=== PATIENT | male | born 1980 | race African-American/Black ===

== ENCOUNTER 2022-05-16 14:47 | Outpatient (CLI) | payer OTHER, SELFPAY ==
--- NOTE | 2022-05-16 | ECG_ITS ---
Measurements Intervals [place] Rate: 89 P: 77 ID: [id number] QRS: 75 QRSD: 86 T: 59 QT: 340 QTc: 414 Interpretive Statements SINUS RHYTHM NO PREVIOUS ECG AVAILABLE FOR COMPARISON Electronically Signed On 05-16-2022 18:39:38 CDT by Joann Sommer M.D.
== END 2022-05-16 14:48 | disposition home or self-care (01) ==
PROVIDERS: PCP Family Medicine; Visit Provider Nurse Practitioner Adult Health
DX: R00.2 Palpitations (principal)
CPT/HCPCS: 93005

== ENCOUNTER 2022-05-18 11:20 | Inpatient (IN) | payer OTHER, SELFPAY ==
[2022-05-18] VITALS (20 sets, daily range): BP systolic 117–149; BP diastolic 66–90; PULSE 72–93; RESP 10–20; TEMP 36.5–37.2; O2SAT 100; BMI 18.8
--- NOTE | ~2022-05-18 | XR_ITS ---
EXAM: XR abdomen/kub 1V DATE: 05/18/2022 15:19 HISTORY: constipation . COMPARISON: None available. FINDINGS: Clear lung bases. Normal bowel gas pattern. No organomegaly. No abnormal abdominal calcifi cation. Regional bones and soft tissues normal for age. IMPRESSION: No radiographic evidence of obstruction or ileus. Reviewed, dictated and finalized at location K.
[2022-05-18 12:09] LABS: Basophils Absolute Auto 0.1 K/mm3 (0.0-0.1); Basophils Percent Auto 1.7 % (0.2-1.2); Eosinophils Absolute Auto 0.1 K/mm3 (0-0.3); Eosinophils Percent Auto 2.3 % (0-4.4); Immature Granulocyte Absolute 0.02 K/mm3 (0.00-0.031); Immature Granulocyte Percent A 0.4 % (0-0.5); Immature Platelet Fraction Pct 10.6 % (0.9-11.2); Lymphocytes Absolute Auto 1.53 K/mm3 (0.9-3.2); Lymphocytes Percent Auto 28.8 % (18.3-44.2); Mean Corpuscular HGB Conc 26.2 g/dl (32-36); Mean Corpuscular Hemoglobin 19.7 pg (26-34); Mean Corpuscular Volume 75.3 fl (80-100); Mean Platelet Volume 11.5 fl (7.4-10.4); Monocytes Absolute Auto 0.6 K/mm3 (0.1-0.6); Monocytes Percent Auto 11.3 % (2.6-8.5); Neutrophils Percent Auto 55.5 % (45.5-73.1); Platelet Count Result 264 k/mm3 (150-375); Red Blood Count 2.79 M/mm3 (4.6-6.20); Red Cell Distribution Width 17.1 % (11.5-14.5); White Blood Count 5.3 K/mm3 (4.5-10.0)
[2022-05-18 12:25] LABS: Hemoglobin 5.5 g/dL (14.0-18.0)
--- NOTE | 2022-05-18 12:28 | ED.GENADULT ---
HPI - General Adult General Chief complaint: Recheck/Abnormal Lab/Rx Stated complaint: abnormal labs Time Seen by Provider: 05/18/22 11:34 History of Present Illness HPI narrative: 41-year-old male presented the emergency department for evaluation for intermittent lower abdominal cramping and generalized fatigue. Patient had follow-up with his primary care physician for the symptoms and had a hemoglobin of 5.4. Patient was referred to the emergency department for further work-up. Repeat hemoglobin here is 5.5. Patient states that he has had some issues with bleeding hemorrhoids but that was a few weeks ago and patient denies any current black tarry stool and denies any bleeding after bowel movements. Patient has no prior history of GI bleeds. Patient has no history of sickle cell Related Data Allergies Allergy/AdvReac Type Severity Reaction Status Date / Time No Known Allergies Allergy Verified 05/18/22 11:23 Review of Systems Review of Systems: CONSTITUTIONAL: Denies fever, chills, or sweats. EYES: Denies visual changes, redness, or discharge. ENT: Denies rhinorrhea, congestion, sore throat, or otalgia. CARDIOVASCULAR: Denies chest pain, palpitations, or edema. RESPIRATORY: Denies cough or dyspnea. GASTROINTESTINAL: See HPI GENITOURINARY: Denies dysuria or hematuria. SKIN: Denies rash or itching. MUSCULOSKELETAL: Denies back pain, joint pain, or myalgia. NEUROLOGIC: Denies headache, numbness, or weakness. [facility] Social History Social History (Updated 05/18/22 @ 12:58 by Yoselin Beauchamp PA-C) Social History: Surrogate medical decision maker: Code status: Full code. Exam Narrative: APPEARANCE: Well appearing, no pain, no distress, well-nourished. HEAD: normocephalic, atraumatic. EYES: PERRLA/EOMI, conjunctivae clear. NOSE: Normal no drainage NECK: Supple. No adenopathy, no masses. RESPIRATORY: Airway patent, respirations nonlabored. Clear to auscultation bilaterally, no rales, rhonchi, wheezing. CARDIOVASCULAR: Regular rate and rhythm without murmurs rubs or gallops. ABDOMINAL: Soft, nontender, nondistended, normal bowel sounds MUSCULOSKELETAL: Moves all extremities. Strength/ROM intact, No edema, No calf tenderness. NEURO: Alert. Cranial nerves II through XII intact. Grossly intact SKIN: Warm, dry. Normal Color Course Course Emergency Course: Patient was Hemoccult negative on the CRISTIANO. Patient repeat hemoglobin was 5.5. Patient was transfused with 2 units. Case discussed with hospitalist patient was accepted for admission. Vital Signs Vital signs: Vital Signs Temperature 97.7 F 05/18/22 11:24 Pulse Rate 85 05/18/22 11:24 Respiratory Rate 16 05/18/22 11:24 Blood Pressure 136/84 05/18/22 11:24 Pulse Oximetry 100 05/18/22 11:24 Temperature 97.7 F 05/18/22 11:24 Pulse Rate 93 05/18/22 12:31 Respiratory Rate 15 05/18/22 12:31 Blood Pressure 136/84 05/18/22 11:24 Pulse Oximetry 100 05/18/22 12:31 Medical Decision Making Vital Signs Vital Signs: Vital Signs Temperature 97.7 F 05/18/22 11:24 Pulse Rate 85 05/18/22 11:24 Respiratory Rate 16 05/18/22 11:24 Blood Pressure 136/84 05/18/22 11:24 Pulse Oximetry 100 05/18/22 11:24 Temperature 97.7 F 05/18/22 11:24 Pulse Rate 93 05/18/22 12:31 Respiratory Rate 15 05/18/22 12:31 Blood Pressure 136/84 05/18/22 11:24 Pulse Oximetry 100 05/18/22 12:31 Lab Data Lab results reviewed: Yes I reviewed the patient's lab results. Result diagrams: 05/18/22 11:46 05/18/22 11:46 Labs: Lab Results 05/18/22 05/18/22 05/18/22 Range/Units 11:46 11:46 11:46 WBC 5.3 (4.5-10.0) K/mm3 RBC 2.79 L (4.6-6.20) M/mm3 Hgb 5.5 L* (14.0-18.0) g/dL Hct 21.0 L (42.0-52.0) % MCV 75.3 L (80-100) fl MCH 19.7 L (26-34) pg MCHC 26.2 L (32-36) g/dl RDW 17.1 H (11.5-14.5) % Plt Count 264 (150-375) k/mm3 MPV 11.5 H
[2022-05-18 12:39] LABS: Alanine Aminotransferase 17 U/L (6-50); Albumin Level 4.7 g/dL (3.5-5.1); Alkaline Phosphatase 49 U/L (38-126); Anion Gap 11 mmol/L (8-16); Aspartate Amino Transferase 23 U/L (17-59); Bilirubin,Total 0.2 mg/dL (0.2-1.3); Blood Urea Nitrogen 18 mg/dL (9-20); Calcium 9.3 mg/dL (8.4-10.2); Carbon Dioxide 25 mmol/L (22-30); Chloride 105 mmol/L (98-107); Estimated CRCL calculation 92 ml/min; Estimated Glomerular Filt Rate > 60; Glucose 106 mg/dL (65-110); Potassium 3.9 mmol/L (3.4-5.0); Sodium 141 mmol/L (137-145)
[2022-05-18 12:55] LABS: Platelet Estimate Adequate (Adequate)
[2022-05-18 12:56] LABS: Anisocytosis 1+ (NORMAL); Hypochromasia 3+ (NORMAL); Ovalocytes 1+ (NORMAL); Poikilocytosis 1+ (NORMAL); Schistocytes 1+ (NORMAL)
--- NOTE | 2022-05-18 13:00 | PM.IMHP ---
H&P: HPI History of Present Illness Date/Time: 05/18/22 13:00 Chief Complaint: Abnormal labs. Narrative: This is a previously healthy 41-year-old male who presented to the emergency department for evaluation of abnormal labs. He had lab work done yesterday for evaluation of decreased energy, fatigue, lightheadedness, sensations of racing heart, and mild shortness of breath with exertion for the last week. Today he was told to come to the ER as his hemoglobin was found to be 5.4, confirmed on labs in the ED. He has chronic constipation dating back to a young age and has intermittent issues with hemorrhoids. A couple of weeks ago he passed a large amount of bright red blood while straining to have a bowel movement, which he assumes was due to his hemorrhoids, but he has not noticed any bleeding since that time. He has been taking FiberCon since that time and his bowels have been more regular although he has had an increase in gas which is causing discomfort. He has no known history of anemia and denies known family history of sickle cell trait and thalassemias. No personal or family history of malignancy. Of note, his stool was guaiac negative in the ED and non-bleeding external hemorrhoids were noted. Review of Systems Review of Systems: Twelve systems were reviewed. He had a low grade temperature earlier this week. Reports losing a few pounds this month; admits he isn't eating well because he tries to avoid having bowel movements. No sweats. No cold or flu symptoms. No syncope but he has been lightheaded the last week with position changes. He had nausea and a couple of episodes of nonbloody and nonbilious emesis the day he had rectal bleeding. No sick contacts. No chest pain. No GERD symptoms. No history of ulcers. Except as documented, all other systems were reviewed and are negative. [facility] Past Medical History Medical History (Updated 05/18/22 @ 15:22 by Yoselin Beauchamp PA-C) Chronic constipation Surgical History Surgical History (Updated 05/18/22 @ 15:16 by Yoselin Beauchamp PA-C) History of orthopedic surgery Repair of leg and hand fractures. Family History Family History (Updated 05/18/22 @ 15:18 by Yoselin Beauchamp PA-C) Father Coronary artery disease Mother Hypertension Social History Social History (Updated 05/18/22 @ 15:20 by Yoselin Beauchamp PA-C) Social History: Surrogate medical decision maker: Yulissa Ron, significant other. Code status: Full code. Smoking status: Never smoker Alcohol intake: current Alcohol use details: Drinks in moderation 1x a month. Substance use: current Substance use type: marijuana Additional living arrangements comments: Lives in [place]. Meds Home Medications and Allergies Home Medications Medication Instructions Recorded Confirmed Type Lactobacil.acidophilus-Bifido.animalis 1 cap PO DAILY 05/18/22 05/18/22 History 5 billion cell sprinkle capsule (Probiotic) pantoprazole 40 mg tablet,delayed 40 mg PO DAILY 05/18/22 05/18/22 History release Allergies Allergy/AdvReac Type Severity Reaction Status Date / Time No Known Allergies Allergy Verified 05/18/22 11:23 Vital Signs Vital Signs - 24 hr 05/18/22 11:24 05/18/22 12:31 Temperature 97.7 F Pulse Rate 85 93 Respiratory Rate 16 15 Blood Pressure 136/84 Pulse Oximetry 100 100 Exam Narrative: General: Well developed male sitting up in bed in no distress. Weight: 68 kg. BMI: 19.2. HEENT: PERRL, EOMI. Sclera anicteric. Pale conjunctivae. Oral mucosa moist. Neck: Supple. Respiratory: Lungs are clear to auscultation bilaterally. Cardiovascular: Regular rate and rhythm with S1-S2. Gastrointestinal: Abdomen is soft, flat, nontender, and nondistended with positive bowel sounds. Skin: Warm and dry. Palms are pale. Extremities: No cyanosis, clubbing, or edema. Radial and pedal pulses intact. Neurological: Alert. Cranial nerves 2-12 a
[2022-05-18 14:07] LABS: Transferrin 322 mg/dL (206-381)
--- NOTE | 2022-05-18 14:44 | ADMGEN ---
This patient, Kane Chin, was admitted to Medical Room 252-01. Patient/family oriented to hospital policies and general routines including ID bracelet, bed and alarms, visiting hours, pain management, procedures, bathroom and other care routines, personal items, smoking policy, room service/diet, and visiting hours. Information on how to activate the Rapid Response Team has been discussed. Patient/Family are encouraged to report perceived risks to care and to ask questions if they do not understand what they are told or what they should do.
[2022-05-18 14:58] LABS: Reticulocytes Absolute 0.06 B/L (32.2-175.7)
[2022-05-18 14:59] LABS: Immature Reticulocyte Fraction 4.7 % (3.0-15.9); Reticulocyte Hemoglobin Conten 13.1 pg (28.2-35.7); Reticulocyte Percent 2.46 % (0.7-4.3)
[2022-05-18 15:05] LABS: Folic Acid 18.5 ng/mL (2.76->20)
[2022-05-18 15:59] LABS: Iron 13 ug/dL (49-181)
[2022-05-18 16:08] LABS: Percent Iron Saturation 3 % (20-50)
[2022-05-18 16:34] LABS: Ferritin 2.97 ng/mL (17.9-464)
[2022-05-18 22:34] LABS: Hematocrit 24.8 % (42.0-52.0); Hemoglobin 7.5 g/dL (14.0-18.0)
[2022-05-18] MEDS: IRON SUCROSE COMPLEX 200 MG in SODIUM CHLORIDE 0.9% IV 50 ML 120 MG IVPB (23:40)
[2022-05-19] VITALS (10 sets, daily range): BP systolic 120–152; BP diastolic 73–86; PULSE 76–105; RESP 16–18; TEMP 36.6–36.9; O2SAT 99–100
[2022-05-19 06:04] LABS: Hematocrit 26.7 % (42.0-52.0); Mean Corpuscular Hemoglobin 23.5 pg (26-34); Mean Corpuscular Volume 78.3 fl (80-100); Mean Platelet Volume 9.8 fl (7.4-10.4); Platelet Count Result 378 k/mm3 (150-375); Red Blood Count 3.41 M/mm3 (4.6-6.20); Red Cell Distribution Width 19.5 % (11.5-14.5); White Blood Count 5.5 K/mm3 (4.5-10.0)
[2022-05-19 06:25] LABS: Anion Gap 9 mmol/L (8-16); Blood Urea Nitrogen 17 mg/dL (9-20); Calcium 8.6 mg/dL (8.4-10.2); Carbon Dioxide 26 mmol/L (22-30); Chloride 105 mmol/L (98-107); Estimated CRCL calculation 97 ml/min; Estimated Glomerular Filt Rate > 60; Glucose 97 mg/dL (65-110); Magnesium 2.2 mg/dL (1.6-2.3); Sodium 140 mmol/L (137-145)
--- NOTE | 2022-05-19 07:29 | WPDGICN ---
Assessment and Plan Assessment and plan (1) Blood in stool: Code(s): K92.1 - Melena Status: Acute Assessment and Plan: He has seen blood which is bright red and he attributes it to hemorrhoids as he normally sees it when he is straining. He denies having black or tarry stools. He denies using NSAIDs. He does take Tylenol occasionally (2) Microcytic anemia: Code(s): D50.9 - Iron deficiency anemia, unspecified Status: Acute Assessment and Plan: he has never been told that he had anemia in the past and has never been treated for anemia. His iron levels are quite low as is his ferritin. (3) Chronic constipation: Code(s): K59.09 - Other constipation Status: Acute Assessment and Plan: His constipation has improved since he began taking FiberCon a few weeks ago. Plan I will schedule him for EGD and colonoscopy to be done tomorrow. Discussed with him the prep, the use of sedation, the risks such as bleeding or perforation caused by the procedure. GI Consult Note Consult date/time: 05/19/22 07:29 HPI: Kane Chin is a 41 year old male who came to the emergency room yesterday stating that he has been lightheaded with decreased energy and heart racing for the past few weeks. He had blood work drawn in his primary care physician's office and was found to be quite anemic. Hemoglobin here was 5.5. Patient states that he his symptoms mentioned above as well as some shortness of breath began about 3 weeks ago. He denies having had abdominal pain nausea vomiting heartburn or dysphagia. He has had no significant change in bowel habits but he is somewhat constipated chronically. Because of that when he strains he will see blood in his stools, usually a streak of blood on toilet paper. He did pass quite a bit of blood a couple of weeks ago during a bowel movement and he assumed this was due to hemorrhoids. There is no known family history of digestive diseases such as inflammatory bowel disease, colon cancer, cirrhosis etcetera. His weight has been stable. Serum iron level is quite low at 13 with 3% saturation. Ferritin is also low. Review of Systems Review of Systems: All systems reviewed & are unremarkable except as noted in HPI and below PMFSH Past Medical History Medical History Chronic constipation Surgical History Surgical History (Updated 05/18/22 @ 15:16 by Yoselin Beauchamp PA-C) History of orthopedic surgery Repair of leg and hand fractures. Family History Family History (Updated 05/18/22 @ 15:18 by Yoselin Beauchamp PA-C) Father Coronary artery disease Mother Hypertension Social History Social History (Updated 05/18/22 @ 15:20 by Yoselin Beauchmap PA-C) Social History: Surrogate medical decision maker: Yulissa Ron, significant other. Code status: Full code. Smoking status: Never smoker Alcohol intake: never Alcohol use details: Drinks in moderation 1x a month. Substance use: current Substance use type: marijuana Last use: 05/16/22 Additional living arrangements comments: Lives in [place]. Spiritual care concerns: No Meds Home Medications and Allergies Home Medications Medication Instructions Recorded Confirmed Type Lactobacil.acidophilus-Bifido.animalis 1 cap PO DAILY 05/18/22 05/18/22 History 5 billion cell sprinkle capsule (Probiotic) pantoprazole 40 mg tablet,delayed 40 mg PO DAILY 05/18/22 05/18/22 History release Allergies Allergy/AdvReac Type Severity Reaction Status Date / Time No Known Allergies Allergy Verified 05/18/22 11:23 Vital Signs Vital Signs - 24 hr 05/18/22 11:24 05/18/22 12:31 05/18/22 12:46 Temperature 36.5 C Pulse Rate 85 93 90 Respiratory Rate 16 15 19 Blood Pressure 136/84 129/85 Pulse Oximetry 100 100 100 Oxygen Delivery 05/18/22 13:16 05/18/22 13:31 10
--- NOTE | 2022-05-19 07:43 | PM.IMPN ---
Progress Note: A&P Assessment and Plan (1) Microcytic anemia: Code(s): D50.9 - Iron deficiency anemia, unspecified Status: Acute Assessment and Plan: GI consult noted, FOBT negative, EGD/colon scheduled, hgb stable at 8 today s/p 2 units pRBCs, cont to monitor Iron studies extremely low, will start oral iron and give IV iron x 3 doses, already received 200 mg dose x 1, will order 2 more at 500 mg (2) Chronic constipation: Code(s): K59.09 - Other constipation Status: Acute Assessment and Plan: Miralax qAM Colace qHS Plan DVT prophylaxis with SCDs GI prophylaxis with PPI Code status full code Subjective Date/time seen: 05/19/22 07:43 Interval history: No overnight events noted. No chest pain or shortness of breath. No nausea, vomiting or diarrhea. No fevers or chills. Patient denies any continued blood in his stool or melena. Review of Systems Review of Systems: 12 point review of systems was assessed and was negative except as noted in the HPI Exam Narrative: General: No acute distress, alert and oriented per baseline HEENT: Atraumatic, normocephalic, mucous membranes moist CV: Regular rate and rhythm, S1, S2 Lungs: Clear to auscultation bilaterally, no rales or crackles noted, no wheezes, good air entry Abdomen: Soft, nontender, nondistended Extremities: Normal to inspection Skin: No rashes noted, no lesions or wounds seen Psych: Euthymic, normal affect Objective Data Vital Signs Vital Signs: Vital Signs - 24 hr 05/18/22 11:24 05/18/22 12:31 05/18/22 12:46 Temperature 97.7 F Pulse Rate 85 93 90 Respiratory Rate 16 15 19 Blood Pressure 136/84 129/85 Pulse Oximetry 100 100 100 Oxygen Delivery 05/18/22 13:16 05/18/22 13:31 05/18/22 13:46 Temperature Pulse Rate 88 92 84 Respiratory Rate 10 L 14 13 Blood Pressure 149/71 H 148/68 H 125/85 Pulse Oximetry 100 100 100 Oxygen Delivery 05/18/22 14:01 05/18/22 15:05 05/18/22 15:20 Temperature 98.9 F 98.3 F Pulse Rate 83 84 80 Respiratory Rate 13 16 16 Blood Pressure 136/75 144/81 H 141/90 H Pulse Oximetry 100 100 100 Oxygen Delivery 05/18/22 16:20 05/18/22 17:20 05/18/22 18:00 Temperature 97.8 F 98.8 F 98.1 F Pulse Rate 77 82 84 Respiratory Rate 16 16 16 Blood Pressure 129/77 133/77 140/69 Pulse Oximetry 100 100 100 Oxygen Delivery 05/18/22 18:27 05/18/22 17:00 05/18/22 18:42 Temperature 98.4 F 98 F Pulse Rate 85 80 Respiratory Rate 16 18 Blood Pressure 140/72 137/68 Pulse Oximetry 100 100 Oxygen Delivery Room Air 05/18/22 20:27 05/18/22 20:42 05/18/22 19:42 Temperature 98.4 F 98.4 F Pulse Rate 87 87 Respiratory Rate 20 20 Blood Pressure 132/66 129/71 132/66 Pulse Oximetry 100 100 Oxygen Delivery 05/18/22 20:42 05/18/22 21:42 05/18/22 20:44 Temperature 98.2 F 97.7 F Pulse Rate 80 72 Respiratory Rate 20 20 Blood Pressure 129/71 117/66 121/71 Pulse Oximetry 100 100 Oxygen Delivery 05/18/22 20:46 05/18/22 20:00 05/19/22 05:53 Temperature 97.9 F Pulse Rate 76 Respiratory Rate 16 Blood Pressure 131/75 120/76 Pulse Oximetry 100 Oxygen Delivery Room Air Intake/Output Intake/Output: Intake & Output 05/16/22 05/17/22 05/18/22 05/19/22 23:59 23:59 23:59 23:59 Intake Total 1224 100 Balance 1224 100 Meds/Results Medications: Active Medications Generic Name Dose Route Start Last Admin Trade Name Freq PRN Reason Stop Dose Admin Bisacodyl 10 mg 05/19/22 12:00 Bisacodyl 5 Mg Tablet Ec PO 05/19/22 21:01 1200,1500,2100 CRISTEL Lactobacillus Acidophilus 1 tablet 05/19/22 09:00 Acidophilus/Bulgaricus Chewable Tablet PO 06/18/22 08:59 DAILY CRISTEL Pantoprazole Sodium 40 mg 05/19/22 09:00 Pantoprazole 40 Mg Tablet PO DAILY CRISTEL Polyethylene Glycol 17 gm 05/19/22 09:00 Polyethylene Glycol 3350 17 Gm Powd.Pack PO QAM CRISTEL Polyethylene Glycol 238 gm 05/04
[2022-05-19] MEDS: polyethylene glycoL 3350 17 GM POWD.PACK PO (08:52)
[2022-05-19] MEDS: PANTOPRAZOLE 40 MG TABLET PO (08:52)
[2022-05-19] MEDS: FERROUS SULFATE 324 MG TABLET PO (08:52)
[2022-05-19] MEDS: ACIDOPHILUS/BULGARICUS CHEWABLE TABLET 1 TABLET PO (08:52)
[2022-05-19] MEDS: IRON SUCROSE COMPLEX 500 MG in SODIUM CHLORIDE 0.9% IV 250 ML 78.57 MG IVPB (10:01)
[2022-05-19 10:03] LABS: IFOB Positive Control Positive; Immunochemical Fecal Occult Bl Negative (N)
[2022-05-19] MEDS: BISACODYL 5 MG TABLET EC 10 MG PO ×3 (12:02→22:21)
[2022-05-19] MEDS: polyethylene glycoL 3350 238 GM BOTTLE PO (14:20)
[2022-05-19] MEDS: DOCUSATE SODIUM 100 MG CAPSULE PO (22:21)
[2022-05-20] VITALS (10 sets, daily range): BP systolic 114–154; BP diastolic 72–84; PULSE 67–93; RESP 14–21; TEMP 36.4–37.1; O2SAT 100
[2022-05-20 05:57] LABS: Basophils Absolute Auto 0.1 K/mm3 (0.0-0.1); Basophils Percent Auto 1.6 % (0.2-1.2); Eosinophils Absolute Auto 0.1 K/mm3 (0-0.3); Eosinophils Percent Auto 1.6 % (0-4.4); Hematocrit 25.4 % (42.0-52.0); Hemoglobin 7.7 g/dL (14.0-18.0); Immature Granulocyte Absolute 0.06 K/mm3 (0.00-0.031); Immature Granulocyte Percent A 0.8 % (0-0.5); Lymphocytes Absolute Auto 1.41 K/mm3 (0.9-3.2); Lymphocytes Percent Auto 18.9 % (18.3-44.2); Mean Corpuscular HGB Conc 30.3 g/dl (32-36); Mean Corpuscular Hemoglobin 22.6 pg (26-34); Mean Corpuscular Volume 74.7 fl (80-100); Mean Platelet Volume 9.7 fl (7.4-10.4); Monocytes Absolute Auto 0.9 K/mm3 (0.1-0.6); Monocytes Percent Auto 11.8 % (2.6-8.5); Neutrophils Absolute Auto 4.9 K/mm3 (1.3-6.7); Neutrophils Percent Auto 65.3 % (45.5-73.1); Platelet Count Result 389 k/mm3 (150-375); Red Cell Distribution Width 19.9 % (11.5-14.5); White Blood Count 7.5 K/mm3 (4.5-10.0)
[2022-05-20 06:16] LABS: Alanine Aminotransferase 15 U/L (6-50); Alkaline Phosphatase 39 U/L (38-126); Anion Gap 11 mmol/L (8-16); Aspartate Amino Transferase 25 U/L (17-59); Bilirubin,Total 0.6 mg/dL (0.2-1.3); Blood Urea Nitrogen 10 mg/dL (9-20); Carbon Dioxide 26 mmol/L (22-30); Chloride 104 mmol/L (98-107); Estimated CRCL calculation 87 ml/min; Estimated Glomerular Filt Rate > 60; Glucose 103 mg/dL (65-110); Potassium 3.5 mmol/L (3.4-5.0); Sodium 141 mmol/L (137-145)
[2022-05-20 07:03] LABS: Anisocytosis 1+ (NORMAL); Schistocytes None Seen (NORMAL)
--- NOTE | 2022-05-20 07:54 | PM.IMPN ---
Progress Note: A&P Assessment and Plan (1) Microcytic anemia: Code(s): D50.9 - Iron deficiency anemia, unspecified Status: Acute Assessment and Plan: GI consult noted, FOBT negative, EGD/colon scheduled for today, hgb stable at 7.7 today s/p 2 units pRBCs, cont to monitor Iron studies extremely low, will start oral iron and give IV iron x 1 more dose for a total of 3 EGD and colonoscopy showed grade 3 hemorrhoids and NERD, no active bleeding Continue IV iron, consult placed Hematology/Oncology, anticipate discharge home tomorrow (2) Chronic constipation: Code(s): K59.09 - Other constipation Status: Acute Assessment and Plan: per GI Plan DVT prophylaxis with SCDs GI prophylaxis with PPI Code status full code Subjective Date/time seen: 05/20/22 07:54 Interval history: No overnight events noted. No chest pain or shortness of breath. No nausea, vomiting or diarrhea. No fevers or chills. Review of Systems Review of Systems: 12 point review of systems was assessed and was negative except as noted in the HPI Exam Narrative: General: No acute distress, alert and oriented per baseline HEENT: Atraumatic, normocephalic, mucous membranes moist CV: Regular rate and rhythm, S1, S2 Lungs: Clear to auscultation bilaterally, no rales or crackles noted, no wheezes, good air entry Abdomen: Soft, nontender, nondistended Extremities: Normal to inspection Skin: No rashes noted, no lesions or wounds seen Psych: Euthymic, normal affect Objective Data Vital Signs Vital Signs: Vital Signs - 24 hr 05/19/22 10:14 05/19/22 10:15 05/19/22 10:19 Temperature Pulse Rate 80 79 Respiratory Rate Blood Pressure 143/85 H 145/80 H Pulse Oximetry 99 Oxygen Delivery Room Air 05/19/22 10:23 05/19/22 14:00 05/19/22 21:05 Temperature 98.0 F 98.5 F Pulse Rate 88 85 76 Respiratory Rate 16 18 Blood Pressure 130/85 133/73 134/85 Pulse Oximetry 100 100 Oxygen Delivery 05/19/22 21:08 05/19/22 21:11 05/19/22 21:47 Temperature 98.5 F 98.5 F 98.0 F Pulse Rate 86 105 H 87 Respiratory Rate 18 18 18 Blood Pressure 142/81 H 152/86 H 134/85 Pulse Oximetry 100 100 100 Oxygen Delivery 05/19/22 22:10 05/20/22 05:08 Temperature 98.8 F Pulse Rate 72 Respiratory Rate 18 Blood Pressure 124/73 Pulse Oximetry 100 Oxygen Delivery Room Air Intake/Output Intake/Output: Intake & Output 05/17/22 05/18/22 05/19/22 05/20/22 23:59 23:59 23:59 23:59 Intake Total 1224 2896 700 Balance 1224 2896 700 Meds/Results Medications: Active Medications Generic Name Dose Route Start Last Admin Trade Name Freq PRN Reason Stop Dose Admin Docusate Sodium 100 mg 05/19/22 21:00 05/19/22 22:21 Docusate Sodium 100 Mg Capsule PO 100 mg QHS CRISTEL Administration Ferrous Sulfate 324 mg 05/19/22 08:00 05/19/22 08:52 Ferrous Sulfate 324 Mg Tablet PO 324 mg DAILY@0800 CRISTEL Administration Lactobacillus Acidophilus 1 tablet 05/19/22 09:00 05/19/22 08:52 Acidophilus/Bulgaricus Chewable Tablet PO 06/18/22 08:59 1 tablet DAILY CRISTEL Administration Pantoprazole Sodium 40 mg 05/19/22 09:00 05/19/22 08:52 Pantoprazole 40 Mg Tablet PO 40 mg DAILY CRISTEL Administration Polyethylene Glycol 17 gm 05/19/22 09:00 05/19/22 08:52 Polyethylene Glycol 3350 17 Gm Powd.Pack PO 17 gm QAM CRISTEL Administration Radiology Results: ITS Impressions Abdomen X-Ray 05/18/22 18:50 IMPRESSION: No radiographic evidence of obstruction or ileus. Labs Labs: Laboratory Results - last 24 hr 05/19/22 05/20/22 05/20/22 08:58 05:27 05:27 WBC 7.5 RBC 3.40 L Hgb 7.7 L Hct 25.4 L MCV 74.7 L MCH 22.6 L MCHC 30.3 L RDW 19.9 H Plt Count 389 H MPV 9.7 Immature Gran % (Auto) 0.8 H Neut % (Auto) 65.3 Lymph % (Auto) 18.9 [place] % (Auto) 11.8 H Eos % (Auto) 1.6 Baso % (Auto) 1.6 H Lymph # (Aut
[2022-05-20] MEDS: ACIDOPHILUS/BULGARICUS CHEWABLE TABLET 1 TABLET PO (08:17)
[2022-05-20] MEDS: PANTOPRAZOLE 40 MG TABLET PO (08:18)
[2022-05-20] MEDS: polyethylene glycoL 3350 17 GM POWD.PACK PO (08:18)
[2022-05-20] MEDS: FERROUS SULFATE 324 MG TABLET PO (08:18)
[2022-05-20] MEDS: LACTATED RINGERS 1,000 ML 150 ML IV CONT (11:04)
--- NOTE | 2022-05-20 11:15 | WPDANESEPPF ---
Anes - Initial Pre Proc Eval Procedure: Operation Date: 05/20/22 14:45 Proposed Procedures p Esophagogastroduodenoscopy & Colonoscopy - Luis Membreno MD Date/Time: 05/20/22 11:15 Surgeon: Khari Jalloh MD Pre Op Diagnosis: anemia Patient Data Age: 41 Gender: M Height: 1.88 m Weight: 64.2 kg Last Vital Signs Temp 36.6 C 05/20/22 11:01 Pulse 78 05/20/22 11:01 Resp 18 05/20/22 11:01 BP 154/84 H 05/20/22 11:01 Pulse Ox 100 05/20/22 11:01 O2 Del Method Room Air 05/20/22 11:01 Allergies Allergy/AdvReac Type Severity Reaction Status Date / Time No Known Allergies Allergy Verified 05/18/22 11:23 Home Medications Medication Instructions Recorded Confirmed Type Lactobacil.acidophilus-Bifido.animalis 1 cap PO DAILY 05/18/22 05/18/22 History 5 billion cell sprinkle capsule (Probiotic) pantoprazole 40 mg tablet,delayed 40 mg PO DAILY 05/18/22 05/18/22 History release Laboratory Tests 05/20/22 05/20/22 05:27 05:27 WBC 7.5 K/mm3 K/mm3 (4.5-10.0) RBC 3.40 M/mm3 L M/mm3 (4.6-6.20) Hgb 7.7 g/dL L g/dL (14.0-18.0) Hct 25.4 % L % (42.0-52.0) MCV 74.7 fl L fl (80-100) MCH 22.6 pg L pg (26-34) MCHC 30.3 g/dl L g/dl (32-36) RDW 19.9 % H % (11.5-14.5) Plt Count 389 k/mm3 H k/mm3 (150-375) MPV 9.7 fl fl (7.4-10.4) Immature Gran % (Auto) 0.8 % H % (0-0.5) Neut % (Auto) 65.3 % % (45.5-73.1) Lymph % (Auto) 18.9 % % (18.3-44.2) [place] % (Auto) 11.8 % H % (2.6-8.5) Eos % (Auto) 1.6 % % (0-4.4) Baso % (Auto) 1.6 % H % (0.2-1.2) Lymph # (Auto) 1.41 K/mm3 K/mm3 (0.9-3.2) [place] # (Auto) 0.9 K/mm3 H K/mm3 (0.1-0.6) Eos # (Auto) 0.1 K/mm3 K/mm3 (0-0.3) Baso # (Auto) 0.1 K/mm3 K/mm3 (0.0-0.1) Abs Immat Gran (auto) 0.06 K/mm3 H K/mm3 (0.00-0.031) Absolute Neuts (auto) 4.9 K/mm3 K/mm3 (1.3-6.7) Absolute Nucleated RBC 0.0 K/mm3 K/mm3 (0.0-0.012) Nucleated RBC % 0.0 % % (0.0-0.2) Platelet Estimate Slightly increased (Adequate) Anisocytosis 1+ (NORMAL) Schistocytes None seen (NORMAL) Sodium 141 mmol/L mmol/L (137-145) Potassium 3.5 mmol/L mmol/L (3.4-5.0) Chloride 104 mmol/L mmol/L (98-107) Carbon Dioxide 26 mmol/L mmol/L (22-30) Anion Gap 11 mmol/L mmol/L (8-16) BUN 10 mg/dL D mg/dL (9-20) Creatinine 0.90 mg/dL mg/dL (0.7-1.3) Estim Creat Clear Calc 87 ml/min ml/min Estimated GFR > 60 (59 - ) Glucose 103 mg/dL mg/dL (65-110) Calcium 9.0 mg/dL mg/dL (8.4-10.2) Total Bilirubin 0.6 mg/dL mg/dL (0.2-1.3) AST 25 U/L U/L (17-59) ALT 15 U/L U/L (6-50) Alkaline Phosphatase 39 U/L U/L (38-126) Total Protein 6.0 g/dL L g/dL (6.3-8.2) Albumin 4.0 g/dL g/dL (3.5-5.1) Patient hx anesthesia problems: none Family hx anesthesia problems: none Results Review: All pre-operative results and documents have been reviewed as part of the pre-operative evaluation. [facility] Past Medical History Medical History (Updated 05/20/22 @ 11:21 by Sascha Griffith DO) Chronic constipation GERD (gastroesophageal reflux disease) Surgical History Surgical History (Updated 05/18/22 @ 15:16 by Yoselin Beauchamp PA-C) History of orthopedic surgery Repair of leg and hand fractures. Family History Family History (Updated 05/18/22 @ 15:18 by Yoselin Beauchamp PA-C) Father Coronary artery disease Mother Hypertension Social History Social History (Updated 05/18/22 @ 15:20 by Yoselin Beauchamp PA-C) Social History: Surrogate medical decision maker: Yulissa Ron, significant other. Code status: Full code. Smoking status: Never smoker Alcohol intake: never Alcohol use details: Drink
--- NOTE | 2022-05-20 19:01 | PDONCCN ---
HPI - Date of Consult Date/Time: 05/20/22 19:01 Requesting Physician: Khari Jalloh MD Primary Care Provider: Axel Gutiérrez MD - Consult Narrative Reason for consult: Iron deficiency anemia Narrative: Kane Chin is a 41 year old male came into the hospital with abnormal labs. He has been dealing with some dark stool. He denies any melena hematochezia. His hemoglobin in the ER was found to be 5.4. He has some chronic constipation. Denies any abdominal pain and chest pain. Denies any significant weight loss. He may have lost 5-6 lb weight. He denies any history of sickle cell anemia. He received 2 units of packed red blood cells with improvement in hemoglobin. EGD showed nonerosive reflux disease. Colonoscopy showed third-degree hemorrhoids. Review of Systems - Review of Systems All systems reviewed & are unremarkable except as noted in HPI and [facility] Medical History: Medical History (Last Updated 05/20/22 @ 11:21 by Sascha Griffith DO) Chronic constipation GERD (gastroesophageal reflux disease) Surgical History: Surgical History (Last Updated 05/18/22 @ 15:16 by Yoselin Beauchamp PA-C) History of orthopedic surgery Repair of leg and hand fractures. Family History: Family History (Last Updated 05/18/22 @ 15:18 by Yoselin Beauchamp PA-C) Father Coronary artery disease Mother Hypertension - Social History Social History: Social History (Last Updated 05/18/22 @ 15:20 by Yoselin Beauchamp PA-C) Alcohol Use: Alcohol intake: never Alcohol use details: Drinks in moderation 1x a month. Substance Use: Substance use: current Substance use type: marijuana Last use: 05/16/22 Others: Spiritual care concerns: No Smoking Status: Smoking status: Never smoker Exam - Vital Signs Vital Signs - 24 hr 05/19/22 21:05 05/19/22 21:08 05/19/22 21:11 Temperature 36.9 C 36.9 C 36.9 C Pulse Rate 76 86 105 H Respiratory Rate 18 18 18 Blood Pressure 134/85 142/81 H 152/86 H Pulse Oximetry 100 100 100 Oxygen Delivery 05/19/22 21:47 05/19/22 22:10 05/20/22 05:08 Temperature 36.7 C 37.1 C Pulse Rate 87 72 Respiratory Rate 18 18 Blood Pressure 134/85 124/73 Pulse Oximetry 100 100 Oxygen Delivery Room Air 05/20/22 10:25 05/20/22 10:30 05/20/22 10:35 Temperature Pulse Rate 67 74 93 Respiratory Rate Blood Pressure 123/77 134/83 133/72 Pulse Oximetry 100 100 100 Oxygen Delivery 05/20/22 11:01 05/20/22 12:57 05/20/22 13:07 Temperature 36.6 C Pulse Rate 78 76 74 Respiratory Rate 18 16 16 Blood Pressure 154/84 H 114/73 116/76 Pulse Oximetry 100 100 100 Oxygen Delivery Room Air Room Air Room Air 05/20/22 13:17 05/20/22 14:20 Temperature 36.4 C Pulse Rate 78 70 Respiratory Rate 16 14 Blood Pressure 124/81 141/84 H Pulse Oximetry 100 100 Oxygen Delivery Room Air - Exam HEENT: EOMI, PERRLA, sclera clear Neck: supple. No: JVD Lungs: clear to auscultation, normal air movement Heart: no murmurs, gallops, or rubs, regular rhythm, regular rate Abdomen: abdomen soft, non-distended, normal bowel sounds Extremities: normal pulses Integumentary: no abnormalities Neurological: normal speech Psychological: mental status NL, mood NL - Lab Results Laboratory Last Values WBC 7.5 K/mm3 (4.5-10.0) 05/20/22 05:27 RBC 3.40 M/mm3 (4.6-6.20) L 05/20/22 05:27 Hgb 7.7 g/dL (14.0-18.0) L 05/20/22 05:27 Hct 25.4 % (42.0-52.0) L 05/20/22 05:27 MCV 74.7 fl (80-100) L 05/20/22 05:27 MCH 22.6 pg (26-34) L 05/20/22 05:27 MCHC 30.3 g/dl (32-36) L 05/20/22 05:27 RDW 19.9 % (11.5-14.5) H 05/20/22 05:27 Plt Count 389 k/mm3 (150-375) H 05/20/22 05:27 MPV 9.7 fl (7.4-10.4) 05/20/22 05:27 Immature Gran % (Auto) 0.8 % (0-0.5) H 05/20/22 05:27 Neut % (Auto) 65.3 % (45.5-73.1) 05/20/22 05:27 Lymph % (Au
[2022-05-20] MEDS: DOCUSATE SODIUM 100 MG CAPSULE PO (21:46)
[2022-05-21 05:40] LABS: Basophils Absolute Auto 0.1 K/mm3 (0.0-0.1); Basophils Percent Auto 1.6 % (0.2-1.2); Eosinophils Absolute Auto 0.2 K/mm3 (0-0.3); Eosinophils Percent Auto 2.8 % (0-4.4); Hematocrit 26.7 % (42.0-52.0); Hemoglobin 7.8 g/dL (14.0-18.0); Immature Granulocyte Absolute 0.11 K/mm3 (0.00-0.031); Immature Granulocyte Percent A 1.6 % (0-0.5); Lymphocytes Absolute Auto 1.47 K/mm3 (0.9-3.2); Mean Corpuscular HGB Conc 29.2 g/dl (32-36); Mean Corpuscular Hemoglobin 23.4 pg (26-34); Mean Corpuscular Volume 80.2 fl (80-100); Mean Platelet Volume 9.9 fl (7.4-10.4); Monocytes Absolute Auto 0.8 K/mm3 (0.1-0.6); Monocytes Percent Auto 12.4 % (2.6-8.5); Neutrophils Percent Auto 59.6 % (45.5-73.1); Nucleated Red Blood Cells Perc 0.4 % (0.0-0.2); Platelet Count Result 393 k/mm3 (150-375); Red Blood Count 3.33 M/mm3 (4.6-6.20); White Blood Count 6.7 K/mm3 (4.5-10.0)
[2022-05-21 05:47] LABS: Alanine Aminotransferase 16 U/L (6-50); Albumin Level 3.8 g/dL (3.5-5.1); Alkaline Phosphatase 49 U/L (38-126); Anion Gap 7 mmol/L (8-16); Aspartate Amino Transferase 20 U/L (17-59); Bilirubin,Total 0.3 mg/dL (0.2-1.3); Blood Urea Nitrogen 16 mg/dL (9-20); Calcium 8.8 mg/dL (8.4-10.2); Carbon Dioxide 26 mmol/L (22-30); Chloride 107 mmol/L (98-107); Estimated CRCL calculation 87 ml/min; Estimated Glomerular Filt Rate > 60; Glucose 100 mg/dL (65-110); Potassium 3.6 mmol/L (3.4-5.0); Sodium 140 mmol/L (137-145)
[2022-05-21 06:00] VITALS: BP 124/64; PULSE 84; RESP 21; TEMP 36.3; O2SAT 100
[2022-05-21 06:05] VITALS: BP 134/71; PULSE 76; RESP 21; TEMP 36.6; O2SAT 100
[2022-05-21 06:10] VITALS: BP 137/80; PULSE 82; RESP 21; TEMP 36.6; O2SAT 100
[2022-05-21 06:16] LABS: Anisocytosis 1+ (NORMAL); Hypochromasia 1+ (NORMAL); Ovalocytes 1+ (NORMAL); Platelet Estimate Adequate (Adequate); Poikilocytosis 1+ (NORMAL)
[2022-05-21 06:39] LABS: Schistocytes None Seen (NORMAL)
[2022-05-21] MEDS: ACIDOPHILUS/BULGARICUS CHEWABLE TABLET 1 TABLET PO (08:40)
[2022-05-21] MEDS: FERROUS SULFATE 324 MG TABLET PO (08:40)
[2022-05-21] MEDS: CYANOCOBALAMIN 500 MCG TABLET PO (08:40)
[2022-05-21] MEDS: PANTOPRAZOLE 40 MG TABLET PO (08:40)
[2022-05-21] MEDS: polyethylene glycoL 3350 17 GM POWD.PACK PO (08:41)
--- NOTE | 2022-05-21 09:30 | PM.DS ---
DS: Admitting Diagnosis Discharge Date May 21, 2022 Admitting Diagnosis rectal bleeding DS: Discharge Diagnosis Discharge Diagnosis (1) Microcytic anemia: Code(s): D50.9 - Iron deficiency anemia, unspecified Status: Acute Assessment and Plan: GI consult noted, FOBT negative, EGD/colon scheduled for today, hgb stable at 7.7 today s/p 2 units pRBCs, cont to monitor Iron studies extremely low, will start oral iron and give IV iron x 1 more dose for a total of 3 EGD and colonoscopy showed grade 3 hemorrhoids and NERD, no active bleeding Continue IV iron, consult placed Hematology/Oncology, anticipate discharge home tomorrow (2) Chronic constipation: Code(s): K59.09 - Other constipation Status: Acute Assessment and Plan: per GI Plan DVT prophylaxis with SCDs GI prophylaxis with PPI Code status full code DS: Summary Hospital Course Hospital Course: 41-year-old male who presented to the emergency department for evaluation of abnormal labs. He had lab work done yesterday for evaluation of decreased energy, fatigue, lightheadedness, sensations of racing heart, and mild shortness of breath with exertion for the last week. Today he was told to come to the ER as his hemoglobin was found to be 5.4, confirmed on labs in the ED. He has chronic constipation dating back to a young age and has intermittent issues with hemorrhoids. A couple of weeks ago he passed a large amount of bright red blood while straining to have a bowel movement, which he assumes was due to his hemorrhoids, but he has not noticed any bleeding since that time. He has been taking FiberCon since that time and his bowels have been more regular although he has had an increase in gas which is causing discomfort. He has no known history of anemia and denies known family history of sickle cell trait and thalassemias. No personal or family history of malignancy. Of note, his stool was guaiac negative in the ED and non-bleeding external hemorrhoids were noted. Patient required 2 units pRBCs and received 3 doses of venofer as well as started on B12 and ferrous sulfate. GI was consulted and performed EGD/colonoscopy and found nothing to explain the extent of bleeding. EGD showed NERD and colonoscopy showed third degree hemorrhoids, recommended following a strict bowel regimen, avoiding sitting on the toilet longer than 2-3 minutes and using wet wipes after BMs. Gianna was consulted for hemorrhoidectomy and saw the patient who was stable. Therefore, they recommended d/c and outpatient f/u with possible procedure at a later date. Time Spent with Patient Time attestation: Total time spent providing and/or coordinating discharge services: Exam Narrative: General: No acute distress, alert and oriented per baseline HEENT: Atraumatic, normocephalic, mucous membranes moist CV: Regular rate and rhythm, S1, S2 Lungs: Clear to auscultation bilaterally, no rales or crackles noted, no wheezes, good air entry Abdomen: Soft, nontender, nondistended Extremities: Normal to inspection Skin: No rashes noted, no lesions or wounds seen Psych: Euthymic, normal affect DS: Data Data Completed and Pending Labs on day of discharge: Labs from last 24 hours 05/21/22 05/21/22 05/18/22 05:07 05:07 13:15 WBC 6.7 RBC 3.33 L Hgb 7.8 L Hct 26.7 L MCV 80.2 D MCH 23.4 L MCHC 29.2 L RDW 21.0 H Plt Count 393 H MPV 9.9 Immature Gran % (Auto) 1.6 H Neut % (Auto) 59.6 Lymph % (Auto) 22.0 [place] % (Auto) 12.4 H Eos % (Auto) 2.8 Baso % (Auto) 1.6 H Lymph # (Auto) 1.47 [place] # (Auto) 0.8 H Eos # (Auto) 0.2 Baso # (Auto) 0.1 Abs Immat Gran (auto) 0.11 H Absolute Neuts (auto) 4.0 Absolute Nucleated RBC 0.0 Nucleated RBC % 0.4 H Platelet Estimate Adequate Hypochromasia 1+ Poikilocytosis 1+ Anisocytosis 1+ Ovalocytes 1+ Schistocytes None seen Sodium 140 [place]
[2022-05-21] MEDS: IRON SUCROSE COMPLEX 500 MG in SODIUM CHLORIDE 0.9% IV 250 ML 78.57 MG IVPB (10:38)
--- NOTE | 2022-05-21 10:40 | P.PNAN_ITS ---
Anes - Prog Note Post-Op Date/Time: 05/21/22 09:30 Cardiovascular status: normal Respiratory status: normal Airway patency: baseline Mental status: baseline Post-Op hydration status: normal Vital Signs: Last Vital Signs Temp 97.8 F 05/21/22 06:10 Pulse 82 05/21/22 06:10 Resp 21 H 05/21/22 06:10 BP 137/80 05/21/22 06:10 Pulse Ox 100 05/21/22 06:10 O2 Del Method Room Air 05/20/22 21:40 Pain Score (VAS): 0 I/O: Intake & Output 05/20/22 05/21/22 05/21/22 23:59 07:59 15:59 Intake Total 300 700 Balance 300 700 Laboratory Tests 05/21/22 05:07 05/21/22 05:07 05/18/22 05/21/22 05/21/22 13:15 05:07 05:07 WBC 6.7 RBC 3.33 L Hgb 7.8 L Hct 26.7 L MCV 80.2 D MCH 23.4 L MCHC 29.2 L RDW 21.0 H Plt Count 393 H MPV 9.9 Immature Gran % (Auto) 1.6 H Neut % (Auto) 59.6 Lymph % (Auto) 22.0 [place] % (Auto) 12.4 H Eos % (Auto) 2.8 Baso % (Auto) 1.6 H Lymph # (Auto) 1.47 [place] # (Auto) 0.8 H Eos # (Auto) 0.2 Baso # (Auto) 0.1 Abs Immat Gran (auto) 0.11 H Absolute Neuts (auto) 4.0 Absolute Nucleated RBC 0.0 Nucleated RBC % 0.4 H Platelet Estimate Adequate Hypochromasia 1+ Poikilocytosis 1+ Anisocytosis 1+ Ovalocytes 1+ Schistocytes None seen Sodium 140 Potassium 3.6 Chloride 107 Carbon Dioxide 26 Anion Gap 7 L BUN 16 Creatinine 0.90 Estim Creat Clear Calc 87 Estimated GFR > 60 Glucose 100 Calcium 8.8 Total Bilirubin 0.3 AST 20 ALT 16 Alkaline Phosphatase 49 Total Protein 6.0 L Albumin 3.8 Tiss Transglut IgA Comm Pending Anti-Gliadin IgG Deam Pending Gliadin (Deamidat) IgA Pending Post-procedural complaints: none Patient Feedback: Patient satisfied with anesthetic care.
--- NOTE | 2022-05-21 11:37 | PM.CNGS ---
Assessment and Plan Assessment and plan (1) Internal hemorrhoids with complication: Code(s): K64.8 - Other hemorrhoids Status: Chronic Assessment and Plan: I discussed with the patient and with hospitalist that the bleeding the patient has been experiencing does not seem to be enough to attribute the hemorrhoids as the source of his iron deficiency and anemia. None the less, he does have rectal bleeding and has prolapsing stage III internal and external hemorrhoids. His internal hemorrhoids were well visualized at recent colonoscopy. He also has an external hemorrhoid in the right anterior position. I have recommended proceeding with excision of the right anterior complex of internal and external hemorrhoids as well as rubber-band ligation of any additional internal hemorrhoids. While this surgery cannot be done today it could be done later this week. Patient tells me that [birth year]. He would prefer to go home and come back as an outpatient to proceed with the surgery. I discussed the procedure with him in detail. His significant other was present at the time. We discussed the procedure as well as the time off work and the usual recovery. All questions were answered. He understands and agrees to go ahead. My office will call him to schedule this as an outpatient in the near future. (2) External hemorrhoids: Code(s): K64.4 - Residual hemorrhoidal skin tags Status: Chronic Assessment and Plan: Right anterior position, will be excised with the associated internal hemorrhoid as described above. (3) Anemia: Qualifiers: Anemia type: unspecified type Qualified Code(s): D64.9 - Anemia, unspecified Code(s): D64.9 - Anemia, unspecified Status: Acute Assessment and Plan: Patient will go home on iron and will be following up with Dr. Kady torres, page makeup system operator. History of Present Illness Consult details Consult date: 05/21/22 Reason for consult: other ( Rectal bleeding, hemorrhoids) Requesting physician: Khari Jalloh MD Narrative: patient is a 41-year-old man who was feeling very fatigued and tired. he was also having some lower abdominal pain. His primary care physician checked hemoglobin and this was 5.4. Patient went to the emergency room was noted to have severe iron deficiency anemia. He has received 2 units of packed cells and several doses of iron. He had an upper and lower endoscopy with no evidence of a bleeding tumor or ulcer. He does report an episode of significant rectal bleeding about 3 weeks ago during passage of a hard bowel movement. he does notice that he will have prolapsing of hemorrhoids from time to time even though bleeding associated with this seems to be infrequent. The prolapse occurs with bowel movements and then reduces. His colonoscopy did show very prominent internal hemorrhoids but no evidence of bleeding at this time. Patient thinks the last time he had bleeding from his rectum was a year before this. His anemia at this point is stable and he is ready for discharge in regards to anemia and iron deficiency. He will follow up with Dr. Kady can. Since possibly the anemia could be due to rectal bleeding and hemorrhoids, he is seen in consultation at this time regarding that. Review of Systems Review of Systems: All systems reviewed & are unremarkable except as noted in HPI and below ( HPI and those items noted below) Constitutional: Constitutional: Denies chills, Denies fever(s) and Denies weight loss Comments: patient has always been very thin. He has not lost any significant amounts of weight. 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 He Feels very healthy at his current weight. Cardiovascular: Cardiovascular: Denies chest pain, Denies diaphoresis, Denies dyspnea and Denies paroxysmal nocturnal dyspnea Respiratory: Respiratory: Denies chest congestion, Denies cough and Denies d
[2022-05-27 10:12] LABS: Gliadin AB, IgG <1.0; TTG IGA AB <1.0
== END 2022-05-21 14:58 | disposition home or self-care (01) | DRG 812 ==
LOC: ANHED 13:55 → ANH2MED 14:12
PROVIDERS: Internal Medicine Gastroenterology; Physician Assistant; Admitting Provider Family Medicine; Emergency Provider Emergency Medicine; PCP Family Medicine; Visit Provider Student in an Organized Health Care Education/Training Program
PROC: 0DJ08ZZ Inspection of Upper Intestinal Tract, Via Natural or Artificial Opening Endoscopic (ICD-10-PCS; CPT 43235; principal; 2022-05-20 14:45)
DX: D50.9 Iron deficiency anemia, unspecified (principal); K92.1 Melena; K59.09 Other constipation; K64.2 Third degree hemorrhoids; K64.4 Residual hemorrhoidal skin tags; K21.9 Gastro-esophageal reflux disease without esophagitis
CPT/HCPCS: 36415; 36430; 74018; 80048; 80053; 82274; 82607; 82728; 82746; 83516; 83540; 83550; 83735; 84443; 84466; 85014; 85018; 85025; 85027; 85046; 85055; 86850; 86900; 86901; 86920; 87081; 96360; 96361; 96365; 96366; 96374; 99285; A9270; G0378; J1756; J2704; J7050; J7120; P9016

== ENCOUNTER 2022-07-11 00:51 | Day surgery (SDC) | payer OTHER, SELFPAY ==
--- NOTE | 2022-06-26 16:13 | PC.NURSE ---
Report to the Outpatient Waiting Room, entrance under the green pavilion located off [facility], at time 10:00AM on date 07/11/22. Planned Procedure Time: 12:00PM. Time changes happen often and if your time is changed the preop area will call you the afternoon before. - You and your visitor will be asked to self-screen and do not enter if you have any COVID symptoms. - Only one visitor is requested with a max of two and NO children visitors are allowed at this time. - The patient visitor may be requested to leave or wait in car when not with patient due to distancing restrictions. - A mask is optional within the hospital. Patients may have clear liquids (water, carbonated beverages, clear teas, apple juice) until 3 hours prior to surgery with a maximum of 20 ounces. - CLEAR LIQUID DIET 07/10, NPO AFTER MIDNIGHT Take the following medications with a SIP of water the morning of surgery: N/A Medications to discontinue per physician SUPPLEMENTS Date to take last dose 07/07 Please no make-up, nail fijian, hairspray, perfume, deodorant, or body powder the day of surgery. No jewelry (including any body piercings) or valuables the day of surgery, leave them at home. Please take a shower or bath the night before, or the morning of, surgery with an antibacterial soap. Wear comfortable, loose fitting clothing. - Jewelry must be removed prior to entering the operating room. Rings and piercings that are not removed may be cut off. - The hospital will not accept responsibility for valuables. - Please leave all valuables, including medications, at home the day of surgery. If you are going home after surgery, a licensed star route mail driver must drive you home. - NO public transportation without another adult if you receive anesthesia. - We recommend that an adult stay with you for 24 hours following discharge. - We also recommend that you do not drive, make important decision, drink alcoholic beverages, or take any drugs that were not prescribed by your health care provider for at least 24 hours after your discharge time. Follow any additional instructions given to you from your surgeon. If you or anyone in your household have experienced Covid symptoms in the past week, please notify your surgeon or the nurse liaison at the phone number below for possible testing. Telephone instructions given to PATIENT and asked if any additional questions and then verbalized understanding. Patient advised to call surgeon office or pre surgery nurse liaison [phone] if any additional questions.
--- NOTE | 2022-07-09 13:06 | PM.SD2 ---
Same Day Admit/Disch: HPI History of Present Illness Chief complaint: internal and external hemorrhoids Narrative: Kane Chin is a 42 year old male who was admitted to the hospital in the middle of May with symptomatic anemia. His hemoglobin was 5.4. He received 2 units of packed cells. He had an EGD and colonoscopy. Both were negative except that he had significant internal hemorrhoids. I saw him in consultation. He had prolapsed internal and external hemorrhoids at the right anterior position. He may have additional internal hemorrhoids. He does have a history of some rectal bleeding in the past. He is taken to surgery now for excision of a single column of internal and external hemorrhoids with possibly rubber-band ligation of additional internal hemorrhoids as an outpatient. [facility] Past Medical History Medical History Chronic constipation GERD (gastroesophageal reflux disease) Surgical History Surgical History History of orthopedic surgery Repair of leg and hand fractures. Family History Family History Father Coronary artery disease Mother Hypertension Social History Social History Social History: Surrogate medical decision maker: Yulissa Ron, significant other. Code status: Full code. Smoking status: Never smoker Second hand tobacco smoke exposure: No Alcohol intake: current Alcohol use details: OCCASIONAL, FEW TIMES PER MONTH Substance use: current Substance use type: marijuana Last use: 06-22-22 Living arrangements: with family Additional living arrangements comments: Lives in [place]. Spiritual care concerns: No Same Day Admit/Disch: Med Pre-admit Medications Home Medications Medication Instructions Recorded Confirmed Type Lactobacil.acidophilus-Bifido.animalis 1 cap PO DAILY 05/18/22 07/11/22 History 5 billion cell sprinkle capsule (Probiotic) cyanocobalamin (vitamin B-12) 500 500 mcg PO QAM 1 month #30 tabs 05/21/22 07/11/22 Rx mcg tablet (Vitamin B-12) ferrous sulfate 325 mg (65 mg 324 mg PO BID 1 month #60 tabs 05/21/22 07/11/22 Rx iron) tablet hydrocodone 5 mg-acetaminophen 325 1 - 2 tablet PO Q6H PRN pain #20 07/11/22 Rx mg tablet tabs ketorolac 10 mg tablet 10 mg PO Q6H 4 days #16 tabs 07/11/22 Rx mineral oil 15 ml PO BID #473 mL 07/11/22 Rx psyllium husk (with sugar) 3.4 1 tbsp PO BID #60 packets 07/11/22 Rx gram oral powder packet (Metamucil (with sugar)) Exam Const: General: comfortable, no acute distress, alert and awake HENMT: Head: normocephalic and atraumatic Mouth: Yes Normal oral and palatal mucosa present Eyes: Conjunctivae: conjunctivae normal Pupils: Equal, round and reactive pupils present EOM: EOMs intact bilaterally Neck: Neck: normal visual inspection, no lymphadenopathy and nontender Resp: Effort & Inspection: normal respiratory effort Auscultation: clear to auscultation bilaterally Cardio: Rate: regular rate Rhythm: regular rhythm Heart sounds: no gallops, no murmurs and no rubs GI: Inspection: non-distended and scaphoid GI Palp: Yes Soft to palpation, No Tenderness to palpation present (GI), No Hepatomegaly present and No Splenomegaly present Rectal Exam: normal sphincter tone, External hemorrhoid(s) present and Internal hemorrhoid(s) present ( right anterior position associated with external hemorrhoids) Skin: Lesions: no lesions Rashes: no rashes Neuro: General: no focal motor deficits and CN's II-XI intact bilaterally Cranial nerves: Yes Equal, round and reactive pupils present, Yes Bilaterally intact EOM present, Yes facial symmetry and Yes Midline tongue present Speech: normal speech Motor exam (neuro): 5/5 motor strength present throughout and Motor abn
--- NOTE | 2022-07-10 10:51 | P.PNAN_ITS ---
Anes - Initial Pre Proc Eval Procedure: Operation Date: 07/11/22 12:00 Proposed Procedures p Single Complex Internal and External Hemorrhoidectomy, Rubber Band Ligation of Internal Hemorrhoids - Niranjan James MD Date/Time: 07/10/22 10:51 Surgeon: Niranjan James MD Pre Op Diagnosis: internal and external hemorrhoids Patient Data Age: 42 Gender: M Height: Weight: Allergies Allergy/AdvReac Type Severity Reaction Status Date / Time No Known Allergies Allergy Verified 06/26/22 16:00 Home Medications Medication Instructions Recorded Confirmed Type Lactobacil.acidophilus-Bifido.animalis 1 cap PO DAILY 05/18/22 06/26/22 History 5 billion cell sprinkle capsule (Probiotic) cyanocobalamin (vitamin B-12) 500 500 mcg PO QAM 1 month #30 tabs 05/21/22 06/26/22 Rx mcg tablet (Vitamin B-12) ferrous sulfate 325 mg (65 mg 324 mg PO BID 1 month #60 tabs 05/21/22 06/26/22 Rx iron) tablet polyethylene glycol 3350 17 gram 17 g PO QAM 1 month #30 ea 05/21/22 06/26/22 Rx oral powder packet (Miralax) Patient hx anesthesia problems: none Family hx anesthesia problems: none Results Review: All pre-operative results and documents have been reviewed as part of the pre- operative evaluation. [facility] Past Medical History Medical History Chronic constipation GERD (gastroesophageal reflux disease) Surgical History Surgical History History of orthopedic surgery Repair of leg and hand fractures. Family History Family History Father Coronary artery disease Mother Hypertension Social History Social History Social History: Surrogate medical decision maker: Yulissa Ron significant other. Code status: Full code. Smoking status: Never smoker Second hand tobacco smoke exposure: No Alcohol intake: current Alcohol use details: OCCASIONAL, FEW TIMES PER MONTH Substance use: current Substance use type: marijuana Last use: 06-22-22 Living arrangements: with family Additional living arrangements comments: Lives in [place]. Spiritual care concerns: No Anes - Eval Final PreProcedure Day of Procedure 07/10/22 10:51 Patient weight: obese Heart: regular rate and rhythm Lungs: clear to auscultation Airway: Mallampati scale class II Neurological: alert and oriented Last oral intake: >/= 8 hours ASA classification: II Emergent: no Anesthetic plan: proceed Anesthesia type and monitoring: general ETT and standard monitoring Results Review: All pre-operative results and documents have been reviewed as part of the pre- operative evaluation. Informed Consent: The patient's anesthetic plan and its attendant risks and benefits were discussed with the patient/family/POA. Questions were solicited and answers provided to the satisfaction of the patient/family/POA.
[2022-07-11] VITALS (8 sets, daily range): BP systolic 132–162; BP diastolic 74–96; PULSE 76–94; RESP 12–18; TEMP 36.4–36.7; O2SAT 100; BMI 18.5
--- NOTE | 2022-07-11 11:45 | WPDHPUPDATE1 ---
History and Physical Update Update Date/Time: 07/11/22 11:45 History and Physical has been reviewed, including an updated exam of the patient. There are NO changes in the patient's condition. Risks, benefits, and alternatives have been discussed and questions answered. Patient agrees to proceed with procedure.
[2022-07-11] MEDS: LACTATED RINGERS 1,000 ML 30 ML IV CONT (11:50)
[2022-07-11] MEDS: KETOROLAC 15 MG/ML VIAL (*BKC) IV PUSH (11:58)
[2022-07-11] MEDS: ACETAMINOPHEN 500 MG TABLET 1000 MG PO (11:58)
[2022-07-11 12:19] LABS: Hematocrit 49.7 % (42.0-52.0); Hemoglobin 16.4 g/dL (14.0-18.0)
[2022-07-11] MEDS: ceFAZolin 2 GM/D5W 50 ML 2 GM/50 ML BAG IVPB (13:54)
[2022-07-11] MEDS: LIDO 1%/EPINEPHRINE/PF 1:200,000 30 ML VIAL XX (14:34)
--- NOTE | 2022-07-11 14:38 | P.OP_ITS ---
Procedure Note - Detailed Date of Procedure 07/11/22 Pre-op Diagnosis internal and external hemorrhoids with complication Post-op Diagnosis Same Procedure Performed Rubber-band ligation internal hemorrhoids, excision internal and external hemorrhoid right anterior complex Surgeon Niranjan James MD [employer] Alena Carey [facility] Anesthesia General and Local (1% lidocaine with epinephrine) Indications Patient was admitted the hospital with severe anemia that was symptomatic in May. He was transfused and endoscopy showed only large internal hemorrhoids with stigmata of bleeding. He has a right anterior complex of prolapsed internal and external hemorrhoids. He also has some other internal hemorrhoids. He is taken to surgery now for hemorrhoidectomy. Findings The right anterior complex of internal and external hemorrhoids was the largest. He also had right posterior internal hemorrhoids as well as left lateral internal hemorrhoids that were large. Description of Procedure Patient was taken to surgery and induced into general anesthesia. He was turned in prone herrera-knife position. The buttocks were taped apart. Prep and drape was carried out. A Cirilo-Mary anoscope was introduced and findings were as above. Local was infiltrated, 20 cc deep subdermal, 20 cc intra sphincteric. The right anterior complex of internal and external hemorrhoids were excised. The wound was closed with subcuticular interrupted 4-0 Vicryl suture. Then the left lateral internal hemorrhoid complex was rubber-band ligated. The right posterior complex of internal hemorrhoids was rubber-band ligated. There was still some internal hemorrhoids in the right anterior position and these were also rubber-band ligated. The excision site was hemostatic. All looked good. We dressed the wound with Xeroform gauze fluffs and tape. Patient was awakened and taken to recovery in good condition. Sponge needle counts were correct x2. Estimated Blood Loss -5 Drains No Packing No Pathology Yes (Right anterior complex internal and external hemorrhoids) Complications No immediate complications Condition Stable Disposition PACU [facility] Billing Surgery - Charge Forward: Surgery Billing (Excision single column internal and external hemorrhoids, rubber-band ligation internal hemorrhoids.)
== END 2022-07-11 16:45 | disposition home or self-care (01) ==
PROVIDERS: Anesthesiology; PCP Family Medicine; Visit Provider Surgery
PROC: (CPT 46255; principal; 2022-07-11 12:00)
DX: K64.8 Other hemorrhoids (principal); K64.4 Residual hemorrhoidal skin tags; K59.09 Other constipation; K21.9 Gastro-esophageal reflux disease without esophagitis
CPT/HCPCS: 46255; 36415; 85014; 85018; 88304; A9270; J0330; J0690; J1100; J1885; J2250; J2405; J2704; J3010; J7120